=== PATIENT | female | born 1995 | race Caucasian/White ===

== ENCOUNTER 2017-02-03 13:43 | Emergency (ER) | payer OTHER ==
[~2017-02-03] VITALS: Ht 162.6 cm; Wt 54.4 kg
[~2017-02-03 13:43] MED LIST: FLEXERIL10 MG PO; JUNEL 1/20 20 M1 TAB PO; MEDROL DOSEPAK1 PAC PO; NAPROXEN500 MG PO; VICODIN 300 MG-1 TAB PO
[2017-02-03 13:47] VITALS: BP 126/78
[2017-02-03] MEDS ORDERED: PERCOCET 5-3251 EACH PO (14:22)
[2017-02-03] MEDS ORDERED: AUGMENTIN 875-1 EACH PO (14:22)
--- NOTE | 2017-02-03 14:29 | ED GENERAL ADULT ---
History of Present Illness General Chief Complaint: Sore Throat, Dental Pain Stated Complaint: DENTAL PAIN Source: patient Exam Limitations: no limitations Vital Signs & Intake/Output Vital Signs & Intake/Output ED Intake and Output 02/04 0000 02/03 1200 Intake Total 60 Output Total Balance 60 Intake, Oral 60 Patient 120 lb Weight Weight Reported by Patient Measurement Method Allergies Coded Allergies: NO KNOWN ALLERGIES (08/02/15) Reconcile Medications Amoxicillin/Potassium Clav (Augmentin 875-125 Tablet) 875 MG-125 MG TABLET 1 TAB PO BID dental infection Oxycodone HCl/Acetaminophen (Percocet 5-325 MG Tablet) 5 MG-325 MG TABLET 1 TAB PO EVERY 6 HOURS PRN PRN dental pain Triage Note: 22 Y/O FEMALE C/O DENTAL PAIN; NO RELIEF WITH OTC MEDS. Triage Nurses Notes Reviewed? yes : No Patient currently breastfeeds: No HPI: 22-year-old female with a history of seizures and IV drug use presenting with left upper dental pain 3 days. Has tried Tylenol and ibuprofen without relief. Begin using 500 mg of amoxicillin twice a day for the past 3 days that she had at home from prior infection. Reports improvement in pain since starting amoxicillin. Has an appt with [facility] in [place] on 02/17/17, but is concerned that she can't bear the pain that long. Denies fevers, neck pain, dysphagia, odynophagia. (ERICK BRIGGS PA-C) Past History Travel History Traveled to [place] past 21 day No Medical History Any Pertinent Medical History? see below for history Neurological: seizure EENT: NONE Cardiovascular: NONE Respiratory: NONE Gastrointestinal: NONE Hepatic: NONE Renal: NONE Musculoskeletal: NONE Psychiatric: IV drug abuse Endocrine: NONE Blood Disorders: NONE Cancer(s): NONE NURSE OUTREACH CASE MANAGER/Reproductive: NONE Surgical History Surgical History: non-contributory Psychosocial History What is your primary language Tuvaluan Tobacco Use: Current Daily Use Daily Tobacco Use Amount/Type: => 5 Cigarettes daily Family History Hx Contributory? No (CHESTER DALEY,ERICK) Review of Systems Review of Systems Constitutional: Denies: chills, fever. EENTM: Reports: tooth pain. Denies: throat pain, throat swelling, mouth pain. Respiratory: Reports: no symptoms. Cardiovascular: Reports: no symptoms. GI: Reports: no symptoms. Genitourinary: Reports: no symptoms. Neurological/Psychological: Reports: no symptoms. (ERICK BRIGGS PA-C) Physical Exam Physical Exam General Appearance: well developed/nourished, no apparent distress, comfortable Head: atraumatic Ears, Nose, Throat: normal pharynx, On exam there are numerous dental caries to multiple upper and lower teeth, including the upper left teeth, there is TTP along the upper left gingiva with no signs of abcess or fluctuance, +pain with tooth thrust of upper left teeth Neck: normal inspection, supple, no neck or mandible edema Respiratory: normal breath sounds, lungs clear Cardiovascular: regular rate/rhythm Core Measures ACS in differential dx? No CVA/TIA Diagnosis: No Severe Sepsis Present: No Septic Shock Present: No (ERICK BRIGGS PA-C) Progress Differential Diagnoses I considered the following diagnoses in my evaluation of the patient: [Dental caries versus dental infection versus dental abscess versus Erick angina] Plan of Care: Patient with likely infected dental caries given pain with jaw thrust and improvement with oral antibiotics. Will switch patient to more appropriate antibiotic (augmentin) to adequately cover mouth eileen. Patient given 2 days of Percocet to help with dental pain while antibiotic has time to clear the dental infection. Instructed to still follow up with [facility] as scheduled on February 17. Initial ED EKG: none (ERICK BRIGGS PA-C) Departure Departure Disposition: HOME OR SELF CARE Condition: Stable Clinical Impression Primary Impression: Pain, dental Referrals: PATIENT HAS NO PRIMARY CARE DR (PCP/Family) Additional Instructions: Take 875mg of augmentin twice a day by mouth for 7 days. Use 5-325mg percocet every 6 hours as needed for pain. After 48 hours you may switch to ibuprofen as needed for pain. Follow-up with [facility] as scheduled on February 17. Return to the ED for any worsening symptoms. Departure Forms: Customer Survey General Discharge Information Prescriptions: Current Visit Scripts Amoxicillin/Potassium Clav (Augmentin 875-125 Tablet) 1 TAB PO BID 7 Days Oxycodone HCl/Acetaminophen (Percocet 5-325 MG Tablet) 1 TAB PO EVERY 6 HOURS PRN PRN dental pain #8 TAB (ERICK BRIGGS PA-C) PA/REGULATORY AFFAIRS ASSOCIATE Co-Sign Statement Statement: ED Attending supervision documentation- I saw and evaluated the patient. I have also reviewed all the pertinent lab results and diagnostic results. I agree with the findings and the plan of care as documented in the PA's/REGULATORY AFFAIRS ASSOCIATE's documentation. x I have reviewed the ED Record and agree with the PA's/REGULATORY AFFAIRS ASSOCIATE's documentation. [] Additions or exceptions (if any) to the PAs/REGULATORY AFFAIRS ASSOCIATE's note and plan are summarized below: [] (SEVERINO MYERS,EMMANUEL) Critical Care Note Critical Care Note Critical Care Time: non-applicable (CHESTER DALEY,ERICK)
== END 2017-02-03 14:30 ==
LOC: ERH 13:43
DX: K08.89 Other specified disorders of teeth and supporting structures (principal)